=== PATIENT | female | born 1965 | race Caucasian/White ===

== ENCOUNTER 2017-08-19 08:21 | Day surgery (SDC) | payer OTHER ==
[2017-08-14 14:29] VITALS: BMI 30.2
--- NOTE | 2017-08-19 07:45 | P.GSHP ---
History of Present Illness H&P Date: 08/19/17 CHIEF COMPLAINT: GERD HISTORY OF PRESENT ILLNESS: The patient is a 51-year-old female who presents reports gastroesophageal reflux disease. Upper endoscopy was offered for further evaluation and management. PAST MEDICAL HISTORY: Please see list. PAST SURGICAL HISTORY: Please see list. MEDICATIONS: Please see list. ALLERGIES: Please see list. SOCIAL HISTORY: No illicit drug use FAMILY HISTORY: No reports of Crohn disease or ulcerative colitis. REVIEW OF ORGAN SYSTEMS: CONSTITUTIONAL: No reports of fevers or chills. GI: Denies any blood in stools or constipation. PHYSICAL EXAM: VITAL SIGNS: Stable GENERAL: Well-developed and pleasant in no acute distress. HEENT: No scleral icterus. Extraocular movements grossly intact. Moist buccal mucosa. NECK: Supple without lymphadenopathy. CHEST: Unlabored respirations. Equal bilateral excursions. CARDIOVASCULAR: Regular rate and rhythm. Distal 2+ pulses. ABDOMEN: Soft, nondistended. MUSCULOSKELETAL: No clubbing, cyanosis, or edema. ASSESSMENT: 1. Gastroesophageal reflux disease PLAN: 1. Recommend proceeding with an upper endoscopy Past Medical History Past Medical History: No Reported History, GERD/Reflux Additional Past Medical History / Comment(s): LYMPH EDEMA History of Any Multi-Drug Resistant Organisms: MRSA Date of last positivie culture/infection: 2007 MDRO Source:: MOUTH, SHOULDER, BACK-CYSTS Past Surgical History: Appendectomy, Breast Surgery, Cholecystectomy, Hysterectomy, Orthopedic Surgery Additional Past Surgical History / Comment(s): BILAT carpal tunnel. RT LUMPECTOMY-BENIGN. COLONOSCOPY. EGD Past Anesthesia/Blood Transfusion Reactions: Postoperative Nausea & Vomiting ( PONV) Smoking Status: Never smoker - Past Family History Mother Family Medical History: No Reported History Medications and Allergies Home Medications Medication Instructions Recorded Confirmed Type Diazepam [Valium] 10 mg PO TID 09/18/14 08/14/17 History ARIPiprazole [Abilify] 5 mg PO HS 08/14/17 08/14/17 History Cariprazine HCl [Vraylar] 1.5 mg PO HS 08/14/17 08/14/17 History Escitalopram [Lexapro] 10 mg PO DAILY 08/14/17 08/14/17 History Furosemide [Lasix] 40 mg PO BID 08/14/17 08/14/17 History Potassium Chloride [Klor-Con 20] 20 meq PO BID 08/14/17 08/14/17 History Zolpidem Tartrate [Ambien Cr] 12.5 mg PO HS 08/14/17 08/14/17 History lamoTRIgine [LaMICtal] 200 mg PO BID 08/14/17 08/14/17 History Allergies Allergy/AdvReac Type Severity Reaction Status Date / Time No Known Allergies Allergy Verified 08/14/17 14:19
[~2017-08-19 08:21] MED LIST: DEXAMETHASONE SOD PHOSPHATE 10 MG/ML 1 ML VIAL IV ONE; LACTATED RINGERS 1,000 ML IV SCH; ONDANSETRON 4 MG/2 ML VIAL IVP ONE; ONDANSETRON 4 MG/2 ML VIAL IVP PRN
[2017-08-19 08:57] VITALS: TEMP 98.9
[2017-08-19] MEDS ORDERED: LIDOCAINE 1% 20 ML VIAL (10MG/ML) FOR IV START INTRADERMA ONE (09:09)
[2017-08-19] MEDS ORDERED: PROPOFOL 10 MG/ML 20 ML VIAL IV ONE (11:13)
[2017-08-19] MEDS ORDERED: fentaNYL (PF) 50 MCG/ML 2 ML AMP ONE (11:13)
[2017-08-19] MEDS ORDERED: GLYCOPYRROLATE 0.2 MG/ML 2 ML VIAL ONE (11:13)
[2017-08-19 11:49] VITALS: BP 111/74; PULSE 88; RESP 16
== END 2017-08-19 12:12 | disposition home or self-care (01) ==
LOC: ORWHC2ENDO 08:21
PROVIDERS: ATTEND Surgery Plastic and Reconstructive Surgery
DX: K21.0 Gastro-esophageal reflux disease with esophagitis (principal); K29.50 Unspecified chronic gastritis without bleeding; F39 Unspecified mood [affective] disorder; Z86.14 Personal history of Methicillin resistant Staphylococcus aureus infection; Z79.899 Other long term (current) drug therapy; Z88.8 Allergy status to other drugs, medicaments and biological substances
CPT/HCPCS: 88305; 43239; J3010; J2704

== ENCOUNTER 2017-09-09 12:16 | Emergency (ER) | payer OTHER ==
[2017-09-09] MEDS ORDERED: SODIUM CHLORIDE 0.9% 1,000 ML IV ONE (12:46)
[2017-09-09] MEDS ORDERED: MAG HYDROX/AL HYDROX/SIMETH 30 ML, HYOSCYAMINE ELIXIR 10 ML, CIMETIDINE HCL 300 MG, LID... PO STA ×4 (12:46)
[2017-09-09] MEDS ORDERED: diphenhydrAMINE 50 MG/ML 1 ML VIAL IVP STA (12:46)
[2017-09-09] MEDS ORDERED: METOCLOPRAMIDE 5 MG/ML 2 ML VIAL IVP STA (12:46)
--- NOTE | 2017-09-09 12:53 | ED ---
Abdominal Pain HPI - General Chief Complaint: Abdominal Pain Stated Complaint: Reflux Time Seen by Provider: 09/09/17 12:34 Source: patient Mode of arrival: ambulatory Limitations: no limitations - History of Present Illness Initial Comments: Is a 51-year-old female to history of GERD and hiatal hernia who presents emergency department for epigastric abdominal pain. She states that the pain has been worsening for the last 5 days per she states that she's been having multiple episodes of vomiting and diarrhea. She noticed a little bit of blood in her vomit this morning. She is supposed to have a surgical repair of the hiatal hernia done by Dr. Faith however is going through preop clearance at this time. She states that she tried home medications however has not had any improvement in her symptoms. She called the office yesterday and was directed to the emergency department for a GI cocktail. The patient denies any fevers or chills. She does admit to some lightheadedness and flushing at times. No dysuria or hematuria. No vaginal bleeding. No other acute complaints. - Related Data Home Medications Medication Instructions Recorded Confirmed Diazepam [Valium] 10 mg PO BID 09/18/14 09/09/17 Cariprazine HCl [Vraylar] 1.5 mg PO HS 08/14/17 09/09/17 Escitalopram [Lexapro] 10 mg PO DAILY 08/14/17 09/09/17 Furosemide [Lasix] 40 mg PO BID 08/14/17 09/09/17 Potassium Chloride [Klor-Con 20] 20 meq PO BID 08/14/17 09/09/17 lamoTRIgine [LaMICtal] 200 mg PO BID 08/14/17 09/09/17 SUMAtriptan SUCCINATE [Imitrex] 50 mg PO Q12H PRN 09/09/17 09/09/17 Zolpidem [Ambien] 10 mg PO HS PRN 09/09/17 09/09/17 Previous Rx's Medication Instructions Recorded Omeprazole 40 mg PO DAILY #30 capsule. 08/19/17 Sucralfate [Carafate] 1 gm PO ACHS #414 ml 09/09/17 Allergies Allergy/AdvReac Type Severity Reaction Status Date / Time No Known Allergies Allergy Verified 09/09/17 12:41 Review of Systems ROS Statement: Those systems with pertinent positive or pertinent negative responses have been documented in the HPI. ROS Other: All systems not noted in ROS Statement are negative. Past Medical History Past Medical History: GERD/Reflux Additional Past Medical History / Comment(s): LYMPH EDEMA History of Any Multi-Drug Resistant Organisms: MRSA Date of last positivie culture/infection: 2007 MDRO Source:: MOUTH, SHOULDER, BACK-CYSTS Past Surgical History: Appendectomy, Breast Surgery, Cholecystectomy, Hysterectomy, Orthopedic Surgery Additional Past Surgical History / Comment(s): BILAT carpal tunnel. RT LUMPECTOMY-BENIGN. COLONOSCOPY. EGD Past Anesthesia/Blood Transfusion Reactions: Postoperative Nausea & Vomiting ( PONV) Past Psychological History: Anxiety, Bipolar, Depression Smoking Status: Former smoker Past Alcohol Use History: None Reported Past Drug Use History: None Reported - Past Family History Mother Family Medical History: No Reported History General Exam - General Exam Comments Initial Comments: Constitutional: Awake alert Appears comfortable Head: Normocephalic atraumatic Eyes: no conjunctival injection No scleral icterus EOMI Neck: No JVD Supple Heart: Regular rate rhythm normal S1-S2 no murmurs Lungs: Clear to auscultation bilaterally No wheezing No rales Abdomen: Soft nondistended tender to palpation in the epigastric region Extremities: Non edematous DP pulses intact Radial pulses intact Neuro: A&Ox3 No focal neurologic deficits Psych: Appropriate mood and affect Limitations: no limitations Course Vital Signs 09/09/17 09/09/17 12:29 13:36 Temperature 98.8 F Pulse Rate 101 H 98 Respiratory 20 16 Rate Blood Pressure 128/86 144/85 O2 Sat by Pulse 97 96 Oximetry - Reevaluation(s) Reevaluation #1: 09/09/17 14:00 EKG showing normal sinus rhythm with a rate of 72. No abnormal ST 7 changes or T-wave inversions. QTC is 4:30. Other intervals normal. No ectopy. Medical Decision Making - Medical Decision Making Is a 51-year-old female who presents emergency department for epigastric pain. She had blood work performed which was unremarkable. She had significant improvement in her symptoms with a GI cocktail, Reglan, and Benadryl. She was able tolerate water at bedside and stated that she felt much improved. She is on Prilosec at home. I'm going to add Carafate. Told her to pecan picker some Maalox as well. I told her to discontinue the Mcdonough's they do not seem to be working and of concern for hypercalcemia with her if she is taking too many. She is to call Dr. Faith for follow-up appointment. Return emergency department she has worsening or changing symptoms reductions were answered. - Lab Data Result diagrams: 09/09/17 13:05 09/09/17 13:05 Lab Results 09/09/17 09/09/17 09/09/17 Range/Units 13:00 13:00 13:05 WBC 11.8 H (3.8-10.6) k/uL RBC 5.16 (3.80-5.40) m/uL Hgb 15.8 (11.4-16.0) gm/dL Hct 43.9 (34.0-46.0) % MCV 85.1 (80.0-100.0) fL MCH 30.6 (25.0-35.0) pg MCHC 36.0 (31.0-37.0) g/dL RDW 13.0 (11.5-15.5) % Plt Count 427 (150-450) k/uL Neutrophils % 57 % Lymphocytes % 36 % Monocytes % 4 % Eosinophils % 1 % Basophils % 1 % Neutrophils # 6.7 (1.3-7.7) k/uL Lymphocytes # 4.3 (1.0-4.8) k/uL Monocytes # 0.4 (0-1.0) k/uL Eosinophils # 0.1 (0-0.7) k/uL Basophils # 0.1 (0-0.2) k/uL Sodium (137-145) mmol/L Potassium (3.5-5.1) mmol/L Chloride (98-107) mmol/L Carbon Dioxide (22-30) mmol/L Anion Gap mmol/L BUN (7-17) mg/dL Creatinine (0.52-1.04) mg/dL Est GFR (CKD-EPI)AfAm (>60 ml/min/1.73 sqM) Est GFR (CKD-EPI)NonAf (>60 ml/min/1.73 sqM) Glucose (74-99) mg/dL Calcium (8.4-10.2) mg/dL Magnesium (1.6-2.3) mg/dL Total Bilirubin (0.2-1.3) mg/dL AST (14-36) U/L ALT (9-52) U/L Alkaline Phosphatase (38-126) U/L Total Protein (6.3-8.2) g/dL Albumin (3.5-5.0) g/dL Lipase (23-300) U/L Urine Color Yellow Urine Appearance Cloudy H (Clear) Urine pH 5.5 (5.0-8.0) Ur Specific Arabi 1.018 (1.001-1.035) Urine Protein Trace H (Negative) Urine Glucose (UA) Negative (Negative) Urine Ketones Negative (Negative) Urine Blood Negative (Negative) Urine Nitrite Negative (Negative) Urine Bilirubin Negative (Negative) Urine Urobilinogen <2.0 (<2.0) mg/dL Ur Leukocyte Esterase Negative (Negative) Urine RBC 1 (0-5) /hpf Urine WBC 8 H (0-5) /hpf Ur Squamous Epith Cells 14 H (0-4) /hpf Amorphous Sediment Rare H (None) /hpf Urine Mucus Few H (None) /hpf Urine HCG, Qual Not Detected (Not Detectd) 09/09/17 Range/Units 13:05 WBC (3.8-10.6) k/uL RBC (3.80-5.40) m/uL Hgb (11.4-16.0) gm/dL Hct (34.0-46.0) % MCV (80.0-100.0) fL MCH (25.0-35.0) pg MCHC (31.0-37.0) g/dL RDW (11.5-15.5) % Plt Count (150-450) k/uL Neutrophils % % Lymphocytes % % Monocytes % % Eosinophils % % Basophils % % Neutrophils # (1.3-7.7) k/uL Lymphocytes # (1.0-4.8) k/uL Monocytes # (0-1.0) k/uL Eosinophils # (0-0.7) k/uL Basophils # (0-0.2) k/uL Sodium 140 (137-145) mmol/L Potassium 3.8 (3.5-5.1) mmol/L Chloride 98 (98-107) mmol/L Carbon Dioxide 28 (22-30) mmol/L Anion Gap 14 mmol/L BUN 10 (7-17) mg/dL Creatinine 0.66 (0.52-1.04) mg/dL Est GFR (CKD-EPI)AfAm >90 (>60 ml/min/1.73 sqM) Est GFR (CKD-EPI)NonAf >90 (>60 ml/min/1.73 sqM) Glucose 97 (74-99) mg/dL Calcium 10.3 H (8.4-10.2) mg/dL Magnesium 2.0 (1.6-2.3) mg/dL Total Bilirubin 0.7 (0.2-1.3) mg/dL AST 29 (14-36) U/L ALT 29 (9-52) U/L Alkaline Phosphatase 101 (38-126) U/L Total Protein 8.1 (6.3-8.2) g/dL Albumin 4.6 (3.5-5.0) g/dL Lipase 31 (23-300) U/L Urine Color Urine Appearance (Clear) Urine pH (5.0-8.0) Ur Specific Arabi (1.001-1.035) Urine Protein (Negative) Urine Glucose (UA) (Negative) Urine Ketones (Negative) Urine Blood (Negative) Urine Nitrite (Negative) Urine Bilirubin (Negative) Urine Urobilinogen (<2.0) mg/dL Ur Leukocyte Esterase (Negative) Urine RBC (0-5) /hpf Urine WBC (0-5) /hpf Ur Squamous Epith Cells (0-4) /hpf Amorphous Sediment (None) /hpf Urine Mucus (None) /hpf Urine HCG, Qual (Not Detectd) Disposition Clinical Impression: Epigastric abdominal pain, Hiatal hernia, Gastritis Disposition: HOME SELF-CARE Condition: Stable Instructions: Gastritis (ED) Additional Instructions: tariff supervisor some Maalox from the pharmacy and use as needed Prescriptions: Sucralfate [Carafate] 1 gm PO ACHS #414 ml Referrals: Nonstaff,Physician [REFERRING] - 1-2 days Mela Doll MD [STAFF PHYSICIAN] - 1-2 days
[2017-09-09 13:18] LABS: Basophils # (A) 0.1 k/uL (0-0.2); Basophils % (A) 1 %; Eosinophils # (A) 0.1 k/uL (0-0.7); Eosinophils % (A) 1 %; HCT 43.9 % (34.0-46.0); HGB 15.8 gm/dL (11.4-16.0); Lymphocytes # (A) 4.3 k/uL (1.0-4.8); Lymphocytes % (A) 36 %; MCH 30.6 pg (25.0-35.0); MCV 85.1 fL (80.0-100.0); Mean Platelet Volume 6.7; Monocytes # (A) 0.4 k/uL (0-1.0); Monocytes % (A) 4 %; Neutrophils # (A) 6.7 k/uL (1.3-7.7); Neutrophils % (A) 57 %; Platelet Count 427 k/uL (150-450); RBC 5.16 m/uL (3.80-5.40); WBC 11.8 k/uL (3.8-10.6)
[2017-09-09 13:27] LABS: Albumin 4.6 g/dL (3.5-5.0); Anion Gap 14 mmol/L; Calcium 10.3 mg/dL (8.4-10.2); Carbon Dioxide 28 mmol/L (22-30); Chloride 98 mmol/L (98-107); Glucose 97 mg/dL (74-99); Lipase 31 U/L (23-300); Sodium 140 mmol/L (137-145); Total Bilirubin 0.7 mg/dL (0.2-1.3); Total Protein 8.1 g/dL (6.3-8.2)
[2017-09-09 13:34] LABS: ALT 29 U/L (9-52); AST 29 U/L (14-36); Blood Urea Nitrogen 10 mg/dL (7-17); Potassium 3.8 mmol/L (3.5-5.1)
[2017-09-09 13:35] LABS: Alkaline Phosphatase 101 U/L (38-126)
[2017-09-09 13:37] VITALS: BP 144/85; RESP 16
[2017-09-09 13:42] LABS: Amorphous Sediment,Urine Rare /hpf; Appearance,Urine Cloudy (Clear); Bilirubin,Urine Negative (Negative); Blood,Urine Negative (Negative); Color,Urine Yellow; Glucose,Urine (UA) Negative (Negative); Ketones,Urine Negative (Negative); Leukocyte Esterase,Urine Negative (Negative); Mucus,Urine Few /hpf; Nitrite,Urine Negative (Negative); PH, Urine 5.5 (5.0-8.0); Protein,Urine Trace (Negative); RBC,Urine 1 /hpf (0-5); Specific Gravity,Urine 1.018 (1.001-1.035); Squamous Epithelial Cell,Urine 14 /hpf (0-4); Urobilinogen,Urine <2.0 mg/dL (<2.0); WBC,Urine 8 /hpf (0-5)
[2017-09-09 14:38] VITALS: PULSE 87; TEMP 98.2
== END 2017-09-09 14:37 | disposition home or self-care (01) ==
LOC: EC 12:16
DX: K29.70 Gastritis, unspecified, without bleeding (principal); K44.9 Diaphragmatic hernia without obstruction or gangrene; K21.9 Gastro-esophageal reflux disease without esophagitis; F31.9 Bipolar disorder, unspecified; F41.9 Anxiety disorder, unspecified; Z86.14 Personal history of Methicillin resistant Staphylococcus aureus infection; Z90.49 Acquired absence of other specified parts of digestive tract; Z79.899 Other long term (current) drug therapy; Z87.891 Personal history of nicotine dependence
CPT/HCPCS: 99284; 96374; 96375; 96361; 36415; 93005; 80053; 83690; 83735; 85025; 81001; 81025; J1200; J2765

== ENCOUNTER → 2017-10-21 | Outpatient (CLI) | payer OTHER ==
--- NOTE | 2017-10-21 10:43 | XR ---
EXAMINATION TYPE: XR chest 2V DATE OF EXAM: 10/21/2017 COMPARISON: None HISTORY: 51-year-old female with hiatal hernia and reflux, pain, vomiting TECHNIQUE: Frontal and lateral views FINDINGS: Heart normal size. Aorta and pulmonary vasculature are within normal limits. Mild diffuse interstitia l prominence of the chronic appearance. No consolidation or pleural effusion. Subtle nodularity right mid lung could reflect vascular shadow. IMPRESSION: 1. No acute cardiopulmonary process. 2. Subtle nodularity at the right midlung could represent a vascular shadow/summation artifact. Given the patient's smoking history, CT can exclude an underlying pulmonary nodule.
--- NOTE | 2017-10-21 11:24 | FL ---
EXAMINATION: Cervical and Thoracic Esophagram DATE OF EXAM: 10/21/2017 CLINICAL INDICATION: 51-year-old female who had a hernia, complaining of reflux and vomiting. Remote history of prior hernia repair which failed after 17 years. Fluoroscopy time: 2 minutes 14 seconds. Total images: 52 COMPARISON: None FINDINGS: The swallowing mechanism is normal and hypopharyngeal anatomy is preserved. There is mild anterior en dplate spondylosis mid to lower cervical spine causing mild impressions on the posterior cervical eso phageal wall. The thoracic esophagus is dilated and patulous with markedly blunted primary and secondary peristalti c waves. Mild tertiary peristalsis is noted especially in the distal esophagus. When the patient is p param, nearly the entire cup of contrast remains pooled in the esophagus. This passes into the stomach when the patient is brought upright. No suspicious filling defect is seen within the fossa. There is a moderate to large size hiatal herni a. Prominent overlap at the GE junction makes it difficult to clearly assess for subtle mucosal lesio ns. Contrast freely passes into the herniated portion of the stomach. Valsalva and positional maneuvers f kalpana to reproduce gastroesophageal reflux. This does not exclude this possibility IMPRESSION: 1. Dilated esophagus. Presbyesophagus. When the patient is prone, nearly the entire cup of contrast r emains pooled in the esophagus. This passes into the stomach when the patient is brought upright. 2. Moderate to large hiatal hernia. This results in prominent soft tissue overlap at the GE junction limiting assessment for subtle mucosal lesions. Correlate with findings on endoscopy. No definite nitesh picious filling defects are identified. 3. Ingested contrast freely refluxes into the herniated portion of the stomach.
== END | disposition home or self-care (01) ==
LOC: RADFLMAIN 09:24
PROVIDERS: ATTEND Surgery Plastic and Reconstructive Surgery
DX: K44.9 Diaphragmatic hernia without obstruction or gangrene (principal); R91.8 Other nonspecific abnormal finding of lung field
CPT/HCPCS: 71046; 74220

== ENCOUNTER → 2017-10-26 | Outpatient (CLI) | payer OTHER ==
--- NOTE | 2017-10-26 12:19 | CT ---
EXAMINATION TYPE: CT abdomen pelvis w con DATE OF EXAM: 10/26/2017 COMPARISON: NONE HISTORY: Upper Abdominal pain and GERD CT DLP: 931.5 mGycm CONTRAST: CT scan of the abdomen and pelvis is performed with Oral Contrast and with IV Contrast, patient injec yung with 100 mL of Isovue 300. FINDINGS: LUNG BASES-: No visible nodule. Patchy and strandy basilar densities may reflect proximal scar atelec tasis. LIVER/GB: Cholecystectomy clips noted. No space occupying hepatic lesion. Biliary tree is of judith l caliber. PANCREAS: No inflammation. No distinct mass. SPLEEN: No splenic enlargement. No lesion seen. ADRENALS: No nodule. No thickening. KIDNEYS/BLADDER: No hydronephrosis. No nephrolithiasis. No distinct renal mass. Distal left ureter al ureterocele. Urinary bladder grossly unremarkable. BOWEL: Appendectomy changes noted. Normal bowel caliber. No inflammation. Moderate fixed hiatal her ivana noted. GENITAL ORGANS: Hysterectomy changes identified. LYMPH NODES: No greater than 1cm abdominal or pelvic lymph nodes are appreciated. AORTA: No significant abnormality. OSSEOUS STRUCTURES: Small fat-containing umbilical hernia. No evidence for additional low ventral abd ominal hernia. OTHER: No significant additional abnormality is seen. IMPRESSION: 1. Moderate fixed hiatal hernia. 2. Small fat-containing umbilical hernia.
== END | disposition home or self-care (01) ==
LOC: RADCTMAIN 10:12
PROVIDERS: ATTEND Surgery Plastic and Reconstructive Surgery
DX: K44.9 Diaphragmatic hernia without obstruction or gangrene (principal); K42.9 Umbilical hernia without obstruction or gangrene
CPT/HCPCS: 74177; Q9967

== ENCOUNTER 2017-12-04 09:11 | Day surgery (SDC) | payer OTHER ==
[2017-12-02 15:40] VITALS: BMI 30.9
[~2017-12-04 09:11] MED LIST changes: +ALPRAZolam 0.25 MG TAB PO PRN; +ALPRAZolam 0.5 MG TAB PO PRN; +ASPIRIN 325 MG TAB PO STA; +ATORVASTATIN 80 MG TAB PO STA; -DEXAMETHASONE SOD PHOSPHATE 10 MG/ML 1 ML VIAL IV ONE; -LACTATED RINGERS 1,000 ML IV SCH; +LIDOCAINE 1% INJ 10MG/ML (20 ML MDV) ONE; +NITROGLYCERIN SL TABS 0.4 MG TAB SUBLINGUAL PRN; -ONDANSETRON 4 MG/2 ML VIAL IVP ONE; -ONDANSETRON 4 MG/2 ML VIAL IVP PRN; +SODIUM CHLORIDE 0.9% 1,000 ML in EMPTY BAG 1 BAG IV ONE
[2017-12-04 09:54] VITALS: RESP 16; TEMP 98.3
[2017-12-04] MEDS ORDERED: SODIUM CHLORIDE 0.9% 1,000 ML IV ONE (10:02)
[2017-12-04 10:12] LABS: Basophils # (A) 0.1 k/uL (0-0.2); Basophils % (A) 1 %; Eosinophils # (A) 0.1 k/uL (0-0.7); Eosinophils % (A) 1 %; HCT 41.8 % (34.0-46.0); HGB 14.3 gm/dL (11.4-16.0); Lymphocytes # (A) 2.9 k/uL (1.0-4.8); Lymphocytes % (A) 29 %; MCH 30.9 pg (25.0-35.0); MCHC 34.2 g/dL (31.0-37.0); MCV 90.3 fL (80.0-100.0); Mean Platelet Volume 6.6; Monocytes # (A) 0.6 k/uL (0-1.0); Monocytes % (A) 6 %; Neutrophils # (A) 6.2 k/uL (1.3-7.7); Neutrophils % (A) 62 %; Platelet Count 369 k/uL (150-450); RBC 4.62 m/uL (3.80-5.40); RDW 14.2 % (11.5-15.5)
[2017-12-04 10:23] LABS: Anion Gap 12 mmol/L; Blood Urea Nitrogen 10 mg/dL (7-17); Calcium 9.1 mg/dL (8.4-10.2); Carbon Dioxide 28 mmol/L (22-30); Chloride 101 mmol/L (98-107); Glucose 111 mg/dL (74-99); Potassium 3.4 mmol/L (3.5-5.1); Sodium 141 mmol/L (137-145)
[2017-12-04] MEDS ORDERED: VERAPAMIL 2.5 MG/ML 2 ML AMP ONE (10:34)
[2017-12-04] MEDS ORDERED: MIDAZOLAM 2 MG/2 ML VIAL ONE ×2 (10:45→10:59)
[2017-12-04] MEDS ORDERED: MIDAZOLAM 2 MG/2 ML VIAL IVP ONE ×2 (10:48→10:59)
[2017-12-04] MEDS ORDERED: POTASSIUM CHLORIDE ER 20 MEQ TAB.ER PO STA (10:56)
[2017-12-04] MEDS: VERAPAMIL SYRINGE (5 MG/10 ML) INTRAARTER ONE ×2 (10:57→11:06)
[2017-12-04] MEDS ORDERED: LIDOCAINE 2% SYG (PF) 100 MG/5 ML MISCELLANE ONE (10:57)
[2017-12-04] MEDS ORDERED: HEPARIN SODIUM 1,000 UN/ML (10ML VL) ONE (10:57)
[2017-12-04] MEDS ORDERED: HEPARIN SODIUM 1,000 UN/ML (10ML VL) IV ONE (10:58)
[2017-12-04] MEDS ORDERED: IOPAMIDOL-370 125ML BTL INJ ONE (11:05)
[2017-12-04] MEDS ORDERED: RX INFO: IV CONTRAST WAS GIVEN 1 EACH MISC MISCELLANE PRN (11:17)
[2017-12-04] MEDS ORDERED: SODIUM CHLORIDE 0.9% 1,000 ML IV SCH (11:30)
--- NOTE | 2017-12-04 11:43 | CC ---
CARDIAC CATHETERIZATION REPORT DATE OF SERVICE: 12/04/2017 PERFORMING PHYSICIAN: Saul Awan MD, [employer]. PROCEDURE PERFORMED: 1. Selective right and left coronary angiogram. 2. Left heart catheterization. INDICATION: This is a pleasant 52-year-old female patient who underwent a stress test as a part of the cardiac assessment before hernia surgery and that came in to be abnormal. Because of that, heart catheterization was advised. APPROACH: Right radial artery. COMPLICATION: None. LEVEL OF SEDATION: Moderate, sedation length of 10 minutes. PROCEDURE DESCRIPTION: After obtaining an informed consent, the patient was brought to the cardiac vp lab. The right radial artery was cannulated using micropuncture technique, the micropuncture wire passed easily, then I placed a 6-Kazakh sheath in the right radial artery. I gave the patient 2 mg of verapamil IA and 6,000 units of heparin IV. I did selective right and left coronary angiogram using JR4 and JL3.5 and left heart catheterization using pigtail catheter. The procedure was completed without any complication. SELECTIVE CORONARY ANGIOGRAM: 1. The RCA is a large caliber vessel. It is a dominant vessel. The RCA is angiographically normal. 2. The left main is angiographically normal. It bifurcates into left circumflex and left anterior descending artery. 3. The left circumflex is a large caliber vessel and it is a nondominant vessel with the circumflex is angiographically normal as well. 4. The LAD: The proximal LAD is angiographically normal. It gives rise into a diagonal branch which seems to be angiographically normal. The LAD mid and distally are angiographically normal. HEMODYNAMICS: The left ventricular end-diastolic pressure was 12 mmHg and no gradient was identified across the aortic valve. CONCLUSION: 1. Normal coronary angiogram. 2. Normal left ventricular end-diastolic pressure. POSTPROCEDURE MANAGEMENT: 1. Maximize medical treatment. 2. The patient can proceed with her surgery as well. MMODL / IJN: [id number] /
[2017-12-04 15:59] VITALS: PULSE 78
[2017-12-04 16:51] VITALS: BP 122/87
== END 2017-12-04 16:51 | disposition home or self-care (01) ==
LOC: CATHCVL 09:11
PROVIDERS: ATTEND Internal Medicine Interventional Cardiology
DX: R94.39 Abnormal result of other cardiovascular function study (principal); I20.0 Unstable angina; Z79.1 Long term (current) use of non-steroidal anti-inflammatories (NSAID); Z79.899 Other long term (current) drug therapy; Z72.0 Tobacco use
CPT/HCPCS: 93458; 80048; 85025; C1894; J2250; J2001; J1644; Q9967

== ENCOUNTER → 2018-02-01 | Outpatient (CLI) | payer OTHER ==
[2018-02-01 11:49] LABS: HCT 43.2 % (34.0-46.0); HGB 14.6 gm/dL (11.4-16.0); MCH 30.1 pg (25.0-35.0); MCHC 33.7 g/dL (31.0-37.0); MCV 89.1 fL (80.0-100.0); Mean Platelet Volume 6.5; Platelet Count 422 k/uL (150-450); RBC 4.85 m/uL (3.80-5.40); RDW 13.7 % (11.5-15.5); WBC 12.5 k/uL (3.8-10.6)
[2018-02-01 11:59] LABS: Potassium 3.1 mmol/L (3.5-5.1)
== END | disposition home or self-care (01) ==
LOC: LABPAT 10:43
PROVIDERS: ATTEND Surgery Plastic and Reconstructive Surgery
DX: Z01.812 Encounter for preprocedural laboratory examination (principal); K44.9 Diaphragmatic hernia without obstruction or gangrene
CPT/HCPCS: 36415; 80051; 85027

== ENCOUNTER 2018-02-05 07:30 | Inpatient (IN) | payer OTHER ==
[2018-01-28 15:19] VITALS: BMI 28.4
[~2018-02-05 07:30] MED LIST changes: -ALPRAZolam 0.25 MG TAB PO PRN; -ALPRAZolam 0.5 MG TAB PO PRN; -ASPIRIN 325 MG TAB PO STA; -ATORVASTATIN 80 MG TAB PO STA; +DEXAMETHASONE SOD PHOSPHATE 10 MG/ML 1 ML VIAL IV ONE; +HEPARIN SODIUM,PORCINE 5,000 UNIT/ML 1 ML VIAL SQ ONE; -LIDOCAINE 1% INJ 10MG/ML (20 ML MDV) ONE; +MIDAZOLAM 2 MG/2 ML VIAL IV PRN; -NITROGLYCERIN SL TABS 0.4 MG TAB SUBLINGUAL PRN; +SCOPOLAMINE 1.5MG/72HR PATCH TRANSDERM ONE; -SODIUM CHLORIDE 0.9% 1,000 ML in EMPTY BAG 1 BAG IV ONE; +ceFAZolin IN SWFI 2 GM/20 ML SYRINGE IVP ONE; +fentaNYL (PF) 50 MCG/ML 2 ML AMP IV PRN
--- NOTE | 2018-02-05 07:41 | P.GSHP ---
History of Present Illness H&P Date: 02/05/18 CHIEF COMPLAINT: Paraesophageal hiatal hernia with gastroesophageal reflux disease. HISTORY OF PRESENT ILLNESS: The patient is a 52-year-old female who presents with recurrent paraesophageal hiatal hernia following Tank fundoplasty. She has completed an esophageal manometry including upper endoscopy workup. Now she presents for surgical intervention. PAST MEDICAL HISTORY: Please see list. PAST SURGICAL HISTORY: Please see list. MEDICATIONS: Please see list. ALLERGIES: Please see list. SOCIAL HISTORY: No illicit drug use FAMILY HISTORY: No reports of Crohn disease or ulcerative colitis. REVIEW OF ORGAN SYSTEMS: CONSTITUTIONAL: No reports of fevers or chills. GI: Denies any blood in stools or constipation. PHYSICAL EXAM: VITAL SIGNS: Stable GENERAL: Well-developed pleasant and in no acute distress. HEENT: No scleral icterus. Extraocular movements grossly intact. Moist buccal mucosa. NECK: Supple without lymphadenopathy. CHEST: Unlabored respirations. Equal bilateral excursions. CARDIOVASCULAR: Regular rate and rhythm. Distal 2+ pulses. ABDOMEN: Soft, nondistended. No peritoneal signs. MUSCULOSKELETAL: No clubbing, cyanosis, or edema. SKIN: Well-perfused. Good skin turgor. MANOMETRY: Shows no evidence of achalasia or scleroderma. ASSESSMENT: 1. Recurrent diaphragmatic paraesophageal hiatal hernia with severe gastroesophageal reflux disease. PLAN: 1. Recommend proceeding with a robotic takedown of Tank with paraesophageal hiatal hernia with possible mesh. 2. Benefits and risks of surgical intervention was discussed including possibility of open technique. 3. Inpatient hospitalization recommended of 2 nights 4. DVT prophylaxis. 5. Antibiotic prophylaxis. 6. She has also completed a very low caloric high-protein diet to address underlying hepatomegaly. Past Medical History Past Medical History: GERD/Reflux, Neurologic Disorder Additional Past Medical History / Comment(s): LYMPH EDEMA, hiatal hernia, migraines History of Any Multi-Drug Resistant Organisms: MRSA Date of last positivie culture/infection: 2007 MDRO Source:: MOUTH, SHOULDER, BACK-CYSTS Past Surgical History: Appendectomy, Breast Surgery, Cholecystectomy, Heart Catheterization, Hysterectomy, Orthopedic Surgery Additional Past Surgical History / Comment(s): BILAT carpal tunnel. RT LUMPECTOMY-BENIGN. COLONOSCOPY. EGD. HEART CATH-12/04/17-NEG. Past Anesthesia/Blood Transfusion Reactions: Postoperative Nausea & Vomiting ( PONV) Smoking Status: Former smoker - Past Family History Mother Family Medical History: No Reported History Medications and Allergies Home Medications Medication Instructions Recorded Confirmed Type Diazepam [Valium] 10 mg PO TID 09/18/14 01/28/18 History Cariprazine HCl [Vraylar] 1.5 mg PO HS 08/14/17 01/28/18 History Escitalopram [Lexapro] 10 mg PO DAILY 08/14/17 01/28/18 History Furosemide [Lasix] 40 mg PO BID 08/14/17 01/28/18 History Potassium Chloride [Klor-Con 20] 20 meq PO BID 08/14/17 01/28/18 History lamoTRIgine [LaMICtal] 200 mg PO BID 08/14/17 01/28/18 History Omeprazole 40 mg PO DAILY #30 capsule. 08/19/17 01/28/18 Rx SUMAtriptan SUCCINATE [Imitrex] 50 mg PO Q12H PRN 09/09/17 01/28/18 History Melatonin 3 mg PO HS 12/02/17 01/28/18 History traZODone HCL 150 mg PO HS 12/02/17 01/28/18 History Allergies Allergy/AdvReac Type Severity Reaction Status Date / Time quetiapine [From Seroquel] Allergy edema Verified 01/28/18 15:15
[2018-02-05 13:04] VITALS: RESP 16
[2018-02-05] MEDS: LACTATED RINGERS 1,000 ML IV SCH (13:20)
[2018-02-05] MEDS: ONDANSETRON 4 MG/2 ML VIAL IVP ONE ×2 (13:21→18:52)
[2018-02-05] MEDS ORDERED: fentaNYL (PF) 50 MCG/ML 2 ML AMP ONE (14:41)
[2018-02-05] MEDS ORDERED: GLYCOPYRROLATE 0.2 MG/ML 2 ML VIAL ONE (14:41)
[2018-02-05] MEDS ORDERED: MIDAZOLAM 2 MG/2 ML VIAL ONE (14:41)
[2018-02-05] MEDS ORDERED: PROPOFOL 10 MG/ML 20 ML VIAL IV ONE (14:41)
[2018-02-05] MEDS ORDERED: HYDROmorphone (PF) 1 MG/ML ONE (14:41)
[2018-02-05] MEDS ORDERED: NEOSTIGMINE 1 MG/ML 10 ML VIAL ONE (14:41)
[2018-02-05] MEDS ORDERED: ROCURONIUM BROMIDE 10 MG/ML 10 ML VIAL IV ONE (14:41)
[2018-02-05] MEDS ORDERED: LIDOCAINE 1% INJ 10MG/ML (20 ML MDV) ONE (14:41)
[2018-02-05] MEDS ORDERED: SUCCINYLCHOLINE CHLORIDE 100 MG/5 ML SYR IV ONE (14:41)
[2018-02-05] MEDS ORDERED: SODIUM CHLORIDE 0.9% 100 ML with ceFAZolin 2,000 MG IV ONE ×2 (15:00)
[2018-02-05] MEDS ORDERED: BUPIVACAIN-EPI 0.5%-1:200,000 30 ML VIAL SQ ONE (15:13)
[2018-02-05] MEDS ORDERED: LACTATED RINGERS 1,000 ML IV ONE ×2 (15:21→17:12)
[2018-02-05] MEDS ORDERED: diphenhydrAMINE 50 MG/ML 1 ML VIAL IVP ONE ×2 (19:06)
[2018-02-05] MEDS ORDERED: ACETAMINOPHEN IV (For NPO) 1,000 MG in EMPTY BAG 1 BAG IVPB ONE (19:17)
[2018-02-05] MEDS ORDERED: NALOXONE 0.4 MG/ML 1 ML VIAL IV PRN (19:17)
[2018-02-05] MEDS ORDERED: diphenhydrAMINE 50 MG/ML 1 ML VIAL IVP PRN (19:17)
[2018-02-05] MEDS ORDERED: HYDROcodone/APAP 15 ML SOLUTION PO PRN (19:17)
--- NOTE | 2018-02-05 19:17 | P.OP ---
Date of Procedure: 02/05/18 Description of Procedure: SURGEON: JAS COX MD PREOPERATIVE DIAGNOSES: 1. Gastroesophageal reflux disease. 2. Paraesophageal hiatal hernia, midline, recurrent 3. History of previous Tank fundoplasty 4. Epigastric abdominal pain 5. Erosive esophagitis 6. Dysphagia 7. Hypertensive upper esophageal sphincter 8. Ineffective esophageal motility 9. Anxiety disorder 10. Bipolar disorder 11. Migraine headaches 12. Hypertensive heart disease POSTOPERATIVE DIAGNOSES: 1. Gastroesophageal reflux disease. 2. Paraesophageal hiatal hernia, midline, recurrent, incarcerated 6 x 8 cm 3. History of previous Tank fundoplasty 4. Epigastric abdominal pain 5. Erosive esophagitis 6. Dysphagia 7. Hypertensive upper esophageal sphincter 8. Ineffective esophageal motility 9. Anxiety disorder 10. Bipolar disorder 11. Migraine headaches 12. Hypertensive heart disease OPERATION: 1. Robotic-assisted da Shweta Xi laparoscopic takedown of Tank fundoplasty 2. Robotic-assisted da Shweta Xi laparoscopic extensive lysis of adhesions over 2 hours for perigastric adhesions 3. Robotic-assisted da Shweta Xi laparoscopic reduction and repair of recurrent incarcerated paraesophageal hiatal hernia, 6 x 8 cm, with Loco Biopatch A 8 x 8 cm. 4. Intraoperative esophagogastroduodenoscopy 5. Placement of 56-German bougie Implants: Loco Biopatch A 8 x 8 cm Anesthesia: GETA, local Estimated Blood Loss (ml): 50 Pathology: none sent Condition: stable Disposition: floor COMPLICATIONS: None. Operative Findings: 1. Recurrent incarcerated paraesophageal hiatal hernia, 6 x 8 cm 2. Severe peritoneal adhesions perigastric with incarcerated hiatal hernia with previous Tank fundoplasty requiring over 2 hours 3. Squamocolumnar junction at 32 cm without injury to esophagus or stomach. 4. Large intrathoracic hernia sac causing incarceration of stomach 5. Division and take down of fundoplasty using vessel sealer and stapler 6. More than 30% of stomach incarcerated into chest reduced into abdominal cavity 7. EGD demonstrates no esophageal injury or full-thickness gastrotomy INDICATIONS: The patient is a 52-year-old female who presents with gastroesophageal reflux and a symptomatic diaphragmatic hiatal hernia. Preoperative workup including upper endoscopy demonstrated recurrent hiatal hernia and slipped Tank fundoplasty. She completed an esophageal manometry. Given the severity of his symptoms, particularly of his symptomatic diaphragmatic hiatal hernia, she had elected for surgical intervention. Benefits and risks including bleeding, infection, recurrence, dysphagia, injury to the lung, need for further surgery was described at length. Informed consent was obtained. DESCRIPTION: The patient was brought into the operating room and placed in supine position. Preoperatively he had received heparin subcutaneously for DVT prophylaxis. After general induction, the abdomen was prepped and draped in standard sterile fashion. Snow catheter was placed. Ioban draping was placed along the abdomen. A timeout protocol was confirmed with the surgical team, for which the patient's name, procedure to be performed including DVT prophylaxis with bilateral SCDs, and preoperative antibiotics were also confirmed. Robotic da Shweta Xi system was prepped and primed. At 12 cm from the xiphoid to just below the umbilicus, proposed port sites were marked with indelible marker along the left axillary line, left mid-clavicular line with each ports were marked 10 cm from each other. A 5 mm 0 degrees laparoscopic trocar entry was performed along the left upper quadrant. The abdomen was insufflated to 15 mmHg pressure he tolerated well. Diagnostic laparoscopy demonstrated no injury to bowel, viscera, or mesentery. No injury had occurred to the small bowel or viscera. Along the hiatus, moderate perigastric adhesions were found from the previous fundoplasty. Next, one 8 mm robotic port was placed along the right upper abdomen. An 8-mm port was were placed along the left lateral abdominal wall. The camera 8-mm port was maintained along the epigastrium. A 12 mm port was placed along the left upper abdominal wall after exchanging the 5 mm port. Please note that the ports were placed at least 20 cm away from the target anatomy. Care was taken to check that each robotic arm were safely away from collision with the bed or the patient. At the epigastrium, a medium sized Rhett liver retractor was placed under direct visualization with the Iron Licensed Clinician placed under the right shoulder of the patient. The additional third robotic arm was used. The patient was repositioned in reverse Trendelenburg position at 14-degrees after lowering the bed. The robot was docked above the left side of the patient. Using a grasper for arm 3, a grasper for arm 1, including vessel sealer for arm 4, the robotic system was docked and primed as described. Instruments were interchanged by the assistant surveyor. I had sat at the console. The phrenoesophageal ligament had moderate scarring where the distal esophagus was mobilized circumferentially. Care was taken to avoid any injury to the The hiatal hernia sac was incarcerated into the mediastinum and divided to allow complete mobilization and freeing of the distal esophagus into the abdominal cavity. Care was taken to avoid any gastrotomy to the incarcerated upper pole of the stomach including takedown of the Tank fundoplasty. Extensive lysis of adhesions went more than 2 hours for extended dissection of the adherent stomach including to the liver bed including incarcerated stomach of the mediastinum to the hernia sac. The measured defect was consistent with 8 cm axial length and 6 cm in width. To prevent any injury to the stomach or esophagus, intraoperative EGD was used to monitor the short esophageal length of 32 cm including slipped Tank. Once the hiatus and crura was dissected, 2-0 VLOC suture was placed as a running suture to re-approximate the diaphragmatic hiatus posteriorly including anteriorly with imbricating stitch. To buttress the repair, a Loco Biopatch A was prepared along the back table and cut to reinforce the repair as an underlay. The mesh was placed along the crural repair posteriorly then cut in half and tagged using horizontal mattress sutures using 2-0 VLOC. I went to the head of the bed to perform intraoperative esophagogastroduodenoscopy. An Olympus gastroscope was passed through posterior oropharynx, where the GE junction was found just proximal to the diaphragmatic hiatus. The esophagus was short with the squamocolumnar junction at 32 cm from the incisors. Complete takedown of the Tank was confirmed as a tortuous winding stomach was unraveled. The stomach was entered. Chronic gastritis was found. LA grade A erosive esophagitis was identified. Retroflexion of the scope was limited due to incompetent pylorus. The stomach had been desufflated. No evidence of leaks were found or mucosal defects of the esophagus or stomach. This concluded the endoscopic portion of the case. The robot was undocked from the patient. I re-scrubbed into the case. All instruments and pneumoperitoneum were evacuated from the abdominal cavity. Incisions were reapproximated using 4-0 Monocryl in an interrupted subcuticular fashion. All incisions were cleaned using dilute hydrogen peroxide. The 12-mm port site fascial defect was less than 8 mm in size. Liquid glue was applied to the skin. Local anesthetic was infiltrated in all wounds for postop analgesia. Multiple intra-abdominal films were obtained. At the end of the procedure, needle, sponge, and instrument count was verified correct by the orthophotography technician. The patient had tolerated the procedure well and was taken to the postanesthesia unit in stable condition. Intraoperative films were reviewed with the patient's family who were pleased with the level of care. Console time 151 minutes
--- NOTE | 2018-02-05 20:23 | P.PN ---
Progress Note - Text Progress Note Date: 02/05/18 Discussed with nursing and patient is doing very well. She had mild nausea. Scopolamine patch is not available nationwide. Will put on scheduled Decadron to address underlying edema. Anticipated discharge in 48 hours.
[2018-02-05] MEDS: 0.9% NACL WITH KCL 20 MEQ/L 1,000 ML IV SCH (21:06)
[2018-02-05] MEDS: HYDROmorphone 1 MG/ML 1 ML SYRINGE IVP PRN (22:34)
[2018-02-05] MEDS: HYOSCYAMINE ORAL DROPS 1.875 MG/15 ML BOTTLE PO SCH (23:36)
[2018-02-05] MEDS: AMPICILLIN-SULBACTAM 3 GM in SODIUM CHLORIDE 0.9% 100 ML IVPB SCH (23:36)
[2018-02-05] MEDS: SIMETHICONE 40 MG/0.6 ML DROPS 2,000 MG/30 ML BOTTLE PO SCH (23:36)
[2018-02-05] MEDS: DEXAMETHASONE SOD PHOSPHATE 10 MG/ML 1 ML VIAL IV SCH (23:36)
[2018-02-06] MEDS ORDERED: DEXAMETHASONE SOD PHOSPHATE 4 MG/ML 1 ML VIAL IV SCH
[2018-02-06] MEDS: 0.9% NACL WITH KCL 20 MEQ/L 1,000 ML IV SCH (03:18)
[2018-02-06] MEDS: HYDROmorphone 1 MG/ML 1 ML SYRINGE IVP PRN ×2 (03:19→07:44)
[2018-02-06] MEDS: DEXAMETHASONE SOD PHOSPHATE 10 MG/ML 1 ML VIAL IV SCH ×2 (05:56→12:37)
[2018-02-06] MEDS: AMPICILLIN-SULBACTAM 3 GM in SODIUM CHLORIDE 0.9% 100 ML IVPB SCH (05:56)
[2018-02-06] MEDS: HYOSCYAMINE ORAL DROPS 1.875 MG/15 ML BOTTLE PO SCH ×2 (05:57→12:29)
[2018-02-06] MEDS: SIMETHICONE 40 MG/0.6 ML DROPS 2,000 MG/30 ML BOTTLE PO SCH ×2 (05:57→12:29)
[2018-02-06 06:36] LABS: Basophils % (A) 0 %; Eosinophils % (A) 0 %; HCT 39.8 % (34.0-46.0); HGB 13.1 gm/dL (11.4-16.0); Lymphocytes # (A) 1.3 k/uL (1.0-4.8); Lymphocytes % (A) 13 %; MCH 30.1 pg (25.0-35.0); MCHC 32.9 g/dL (31.0-37.0); MCV 91.7 fL (80.0-100.0); Mean Platelet Volume 6.5; Monocytes # (A) 0.2 k/uL (0-1.0); Monocytes % (A) 2 %; Neutrophils # (A) 8.4 k/uL (1.3-7.7); Neutrophils % (A) 85 %; Platelet Count 306 k/uL (150-450); RBC 4.34 m/uL (3.80-5.40); WBC 9.9 k/uL (3.8-10.6)
[2018-02-06 06:44] LABS: Anion Gap 6 mmol/L; Blood Urea Nitrogen 9 mg/dL (7-17); Calcium 8.2 mg/dL (8.4-10.2); Carbon Dioxide 29 mmol/L (22-30); Chloride 106 mmol/L (98-107); Magnesium 2.1 mg/dL (1.6-2.3); Phosphorus 3.6 mg/dL (2.5-4.5); Potassium 4.1 mmol/L (3.5-5.1); Sodium 141 mmol/L (137-145)
[2018-02-06] MEDS ORDERED: 0.9% NACL WITH KCL 20 MEQ/L 1,000 ML IV SCH (08:00)
[2018-02-06] MEDS ORDERED: ENOXAPARIN 40 MG/0.4 ML SYRINGE SQ SCH (09:00)
[2018-02-06] MEDS ORDERED: PANTOPRAZOLE 40 MG/10 ML VIAL IV SCH (09:00)
[2018-02-06] MEDS: LACTATED RINGERS 1,000 ML IV SCH (10:05)
[2018-02-06 11:30] VITALS: BP 111/72; PULSE 54; TEMP 97.5
--- NOTE | 2018-02-06 11:51 | P.DS ---
Providers Date of admission: 02/05/18 12:14 Expected date of discharge: 02/06/18 Attending physician: Mela Doll Primary care physician: Daniel Orta - Discharge Diagnosis(es) (1) Paraesophageal hernia with obstruction but no gangrene Current Visit: Yes Status: Acute (2) History of Tank fundoplication Current Visit: Yes Status: Acute (3) Depressive disorder Current Visit: Yes Status: Acute (4) Bipolar disease, chronic Current Visit: Yes Status: Acute (5) Anxiety disorder Current Visit: Yes Status: Acute (6) Gastroesophageal reflux disease Current Visit: Yes Status: Acute (7) Hx of migraines Current Visit: Yes Status: Acute (8) Hypertensive heart disease Current Visit: Yes Status: Acute Hospital Course: POSTOPERATIVE DIAGNOSES: 1. Gastroesophageal reflux disease. 2. Paraesophageal hiatal hernia, midline, recurrent, incarcerated 6 x 8 cm 3. History of previous Tank fundoplasty 4. Epigastric abdominal pain 5. Erosive esophagitis 6. Dysphagia 7. Hypertensive upper esophageal sphincter 8. Ineffective esophageal motility 9. Anxiety disorder 10. Bipolar disorder 11. Migraine headaches 12. Hypertensive heart disease The patient is a 52-year-old female who presents with gastroesophageal reflux and a symptomatic diaphragmatic hiatal hernia. Preoperative workup including upper endoscopy demonstrated recurrent hiatal hernia and slipped Tank fundoplasty. She completed an esophageal manometry. Given the severity of his symptoms, particularly of his symptomatic diaphragmatic hiatal hernia, she had elected for surgical intervention. Benefits and risks including bleeding, infection, recurrence, dysphagia, injury to the lung, need for further surgery was described at length. Informed consent was obtained. Post-procedure, she was educated on deep breathing including coughs. She was also educated to avoid medications larger than the size of a tic tac. Dietary instructions including liquid diet was reviewed. 1 intensive straws and carbonated beverages reviewed. Follow-up in the office in 5 days was stressed. Medical reconciliation form was confirmed. No lifting over 4 pounds instructions also addressed. Esophagram negative for leaks. Avoiding gulps with drinks were also addressed. Vital Signs Temp 97.5 F L 02/06/18 11:16 Pulse 54 L 02/06/18 11:16 Resp 16 02/06/18 11:16 BP 111/72 02/06/18 11:16 Pulse Ox 99 02/06/18 11:16 Intake & Output 02/05/18 02/06/18 02/06/18 18:59 06:59 18:59 Intake Total 2400 650 400 Output Total 225 Balance 2175 650 400 Intake: IV 2400 650 Oral 400 Output: Urine 175 Estimated Blood Loss 50 Other: # Voids 425 GENERAL: Well developed and in no acute distress. Pleasant. HEENT: No sclera icterus. Extraocular movements grossly intact. Moist buccal mucosa. Head is atraumatic, normocephalic. Hears conversational speech. No nasal drainage. NECK: Supple without lymphadenopathy. CHEST: Non-labored respirations and equal bilateral excursions. CARDIOVASCULAR: Regular rate and rhythm. Palpable 2+ radial pulses. ABDOMEN: Soft, nontender. Nondistended. Incisions well approximated. No signs of infection. MUSCULOSKELETAL: No clubbing, cyanosis or edema. NEUROLOGIC: No focal or lateralizing signs. Cranial nerves II-12 grossly intact PSYCH: Appropriate affect. Alert and oriented to person, place and time. SKIN: Good skin turgor. Well perfused. Pertinent Studies: Esophagram negative for leaks Procedures: OPERATION: 1. Robotic-assisted da Shweta Xi laparoscopic takedown of Tank fundoplasty 2. Robotic-assisted da Shweta Xi laparoscopic extensive lysis of adhesions over 2 hours for perigastric adhesions 3. Robotic-assisted da Shweta Xi laparoscopic reduction and repair of recurrent incarcerated paraesophageal hiatal hernia, 6 x 8 cm, with [place] Biopatch A 8 x 8 cm. 4. Intraoperative esophagogastroduodenoscopy 5. Placement of 56-Spanish bougie Implants: [place] Biopatch A 8 x 8 cm Anesthesia: GETA, local Estimated Blood Loss (ml): 50 Pathology: none sent Condition: stable Disposition: floor COMPLICATIONS: None. Operative Findings: 1. Recurrent incarcerated paraesophageal hiatal hernia, 6 x 8 cm 2. Severe peritoneal adhesions perigastric with incarcerated hiatal hernia with previous Tank fundoplasty requiring over 2 hours 3. Squamocolumnar junction at 32 cm without injury to esophagus or stomach. 4. Large intrathoracic hernia sac causing incarceration of stomach 5. Division and take down of fundoplasty using vessel sealer and stapler 6. More than 30% of stomach incarcerated into chest reduced into abdominal cavity 7. EGD demonstrates no esophageal injury or full-thickness gastrotomy Patient Condition at Discharge: Stable Plan - Discharge Summary Discharge Rx Participant: Yes New Discharge Prescriptions: New Hyoscyamine Elixir [Levsin 0.125MG/ML Drops] 0.125 mg PO Q6HR PRN #10 ml PRN Reason: Esophageal Spasm Simethicone 40 mg/0.6 ml Drops [Mylicon Drops] 40 mg PO Q6HR PRN #30 ml PRN Reason: Abdominal Distention Acetaminophen Oral Susp (Peds) [Tylenol Oral Susp For Peds (Grape)] 500 mg PO Q6H #480 bottle Bisacodyl [Dulcolax] 5 mg PO DAILY PRN #10 tablet.dr PRN Reason: Constipation Ondansetron Odt [Zofran ODT] 4 mg PO Q8HR PRN #10 tab PRN Reason: Nausea Continue Diazepam [Valium] 10 mg PO TID lamoTRIgine [LaMICtal] 200 mg PO BID Potassium Chloride [Klor-Con 20] 20 meq PO BID Furosemide [Lasix] 40 mg PO BID Escitalopram [Lexapro] 10 mg PO DAILY Cariprazine HCl [Vraylar] 1.5 mg PO HS SUMAtriptan SUCCINATE [Imitrex] 50 mg PO Q12H PRN PRN Reason: Migraine Headache traZODone HCL 150 mg PO HS Melatonin 3 mg PO HS Discontinued Omeprazole 40 mg PO DAILY #30 capsule.dr Discharge Medication List Diazepam [Valium] 10 mg PO TID 09/18/14 [History] Cariprazine HCl [Vraylar] 1.5 mg PO HS 08/14/17 [History] Escitalopram [Lexapro] 10 mg PO DAILY 08/14/17 [History] Furosemide [Lasix] 40 mg PO BID 08/14/17 [History] Potassium Chloride [Klor-Con 20] 20 meq PO BID 08/14/17 [History] lamoTRIgine [LaMICtal] 200 mg PO BID 08/14/17 [History] SUMAtriptan SUCCINATE [Imitrex] 50 mg PO Q12H PRN 09/09/17 [History] Melatonin 3 mg PO HS 12/02/17 [History] traZODone HCL 150 mg PO HS 12/02/17 [History] Acetaminophen Oral Susp (Peds) [Tylenol Oral Susp For Peds (Grape)] 500 mg PO Q6H #480 bottle 02/06/18 [Rx] Bisacodyl [Dulcolax] 5 mg PO DAILY PRN #10 tablet. 02/06/18 [Rx] Hyoscyamine Elixir [Levsin 0.125MG/ML Drops] 0.125 mg PO Q6HR PRN #10 ml [Rx] Ondansetron Odt [Zofran ODT] 4 mg PO Q8HR PRN #10 tab 02/06/18 [Rx] Simethicone 40 mg/0.6 ml Drops [Mylicon Drops] 40 mg PO Q6HR PRN #30 ml [Rx] Follow up Appointment(s)/Referral(s): Mela Doll MD [STAFF PHYSICIAN] - 02/09/18 (Please call to confirm time) Patient Instructions/Handouts: Laparoscopic Hiatal Hernia Repair (DC) Activity/Diet/Wound Care/Special Instructions: NO Lifting for 4 pounds in 4 weeks. May shower. No bath tub soaks. Liquid diet only. No straws. No carbonated beverages. Please open capsules or crushed tablets for medication greater than the size of tic tac Discharge Disposition: HOME SELF-CARE
--- NOTE | 2018-02-06 12:45 | FL ---
SINGLE CONTRAST UPPER GI EXAMINATION: CLINICAL HISTORY: 52-year-old female. Hiatal hernia repair, Tank fundoplication TECHNIQUE: Single contrast exam performed with 50 ml Isovue 370 contrast. Total fluoroscopy time: 34 seconds. Total images: 14 FINDINGS: The patient swallowed oral contrast without difficulty or delay. Esophageal peristalsis and motility are within normal limits. There are postsurgical changes of Tank fundoplication demonstrated. Ther e is good flow of contrast across the surgical level and into the stomach without evidence of contras t extravasation to suggest leak. No postsurgical free air seen. IMPRESSION: No evidence of leak or significant obstruction status post Tank fundoplication.
[2018-02-07] MEDS ORDERED: BISACODYL 5 MG TABLET.DR PO PRN (08:00)
== END 2018-02-06 13:55 | disposition home or self-care (01) | DRG 328 ==
LOC: 2ORMAIN 12:14 → 6PED 18:32
PROVIDERS: ADMIT Surgery Plastic and Reconstructive Surgery; ATTEND Surgery Plastic and Reconstructive Surgery
PROC: 0BUT4JZ Supplement Diaphragm with Synthetic Substitute, Percutaneous Endoscopic Approach (ICD-10-PCS; 2018-02-05)
PROC: 0DNW4ZZ Release Peritoneum, Percutaneous Endoscopic Approach (ICD-10-PCS; 2018-02-05)
PROC: 8E0W4CZ Robotic Assisted Procedure of Trunk Region, Percutaneous Endoscopic Approach (ICD-10-PCS; 2018-02-05)
PROC: 0DJ08ZZ Inspection of Upper Intestinal Tract, Via Natural or Artificial Opening Endoscopic (ICD-10-PCS; 2018-02-05)
PROC: 0DQ44ZZ Repair Esophagogastric Junction, Percutaneous Endoscopic Approach (ICD-10-PCS; principal; 2018-02-05 14:00)
DX: K44.0 Diaphragmatic hernia with obstruction, without gangrene (principal); K66.0 Peritoneal adhesions (postprocedural) (postinfection); F31.9 Bipolar disorder, unspecified; F41.9 Anxiety disorder, unspecified; G43.909 Migraine, unspecified, not intractable, without status migrainosus; I11.9 Hypertensive heart disease without heart failure; K21.0 Gastro-esophageal reflux disease with esophagitis; K29.50 Unspecified chronic gastritis without bleeding; I89.0 Lymphedema, not elsewhere classified; R13.10 Dysphagia, unspecified; Z79.899 Other long term (current) drug therapy; Z90.710 Acquired absence of both cervix and uterus; Z87.891 Personal history of nicotine dependence; Z88.8 Allergy status to other drugs, medicaments and biological substances; Z86.14 Personal history of Methicillin resistant Staphylococcus aureus infection; Z90.49 Acquired absence of other specified parts of digestive tract
CPT/HCPCS: 74240; 80051; 82310; 82565; 83735; 84100; 84132; 84520; 85025

== ENCOUNTER → 2018-04-20 | Outpatient (CLI) | payer OTHER | END | disposition home or self-care (01) | LOC: LABWHC1 14:35 | PROVIDERS: ATTEND Surgery Plastic and Reconstructive Surgery | DX: E83.42 Hypomagnesemia (principal); R19.7 Diarrhea, unspecified | CPT/HCPCS: 36415; 83735 ==

== ENCOUNTER → 2018-05-14 | Outpatient (CLI) | payer OTHER ==
--- NOTE | 2018-05-14 10:30 | FL ---
EXAMINATION TYPE: FL barium swallow DATE OF EXAM: 05/14/2018 CLINICAL HISTORY: Reflux after hiatal hernia surgery in January 2018. TECHNIQUE: A single contrast esophagram is performed utilizing thin and thick barium. A total of 2 minutes and 43 seconds of fluoroscopic time was utilized during procedure. 45 fluoroscopic images wer e saved. COMPARISON: None FINDINGS: The esophagus shows abnormal motility and markedly delayed emptying into the stomach. There is retained stasis of contrast both in the gravity dependent and gravity independent portions of the examination, larger within the gravity independent portion of the examination. This is seen within t he mid and distal esophagus without a secondary or tertiary peristaltic esophageal wave. No evidence of hiatal hernia or stricture noted. Mild gastroesophageal reflux was seen during real time performan ce of this study to the level of the distal esophagus, unprovoked without Valsalva maneuver. Delayed propulsion improved after large bolus of water was administered orally. IMPRESSION: 1. Abnormal esophageal motility with marked delay of contrast propulsion through the mid and distal e sophagus corrected with large bolus of water. No tertiary contractions are seen. Overall flaccid appe arance of the esophagus after initial normal primary and secondary contractile waves. Considerations are for presbyesophagus or neuromuscular disorder. 2. No distal esophageal stricture. 3. Mild gastroesophageal reflux.
== END ==
LOC: RADFLWHC 08:45
PROVIDERS: ATTEND Surgery Plastic and Reconstructive Surgery
DX: K21.9 Gastro-esophageal reflux disease without esophagitis (principal)
CPT/HCPCS: 74220

== ENCOUNTER 2018-06-23 09:37 | Day surgery (SDC) | payer OTHER ==
[2018-06-21 14:28] VITALS: BMI 25.0
[~2018-06-23 09:37] MED LIST changes: -DEXAMETHASONE SOD PHOSPHATE 10 MG/ML 1 ML VIAL IV ONE; -HEPARIN SODIUM,PORCINE 5,000 UNIT/ML 1 ML VIAL SQ ONE; +LACTATED RINGERS 1,000 ML IV SCH; +LIDOCAINE 1% 20 ML VIAL (10MG/ML) FOR IV START INTRADERMA PRN; -MIDAZOLAM 2 MG/2 ML VIAL IV PRN; -SCOPOLAMINE 1.5MG/72HR PATCH TRANSDERM ONE; -ceFAZolin IN SWFI 2 GM/20 ML SYRINGE IVP ONE; -fentaNYL (PF) 50 MCG/ML 2 ML AMP IV PRN
[2018-06-23 10:22] VITALS: TEMP 98
[2018-06-23] MEDS ORDERED: LACTATED RINGERS 1,000 ML IV ONE (10:22)
[2018-06-23] MEDS ORDERED: PROPOFOL 10 MG/ML 20 ML VIAL IV ONE (10:47)
[2018-06-23] MEDS ORDERED: LIDOCAINE 1% INJ 10MG/ML (20 ML MDV) ONE (10:47)
--- NOTE | 2018-06-23 11:30 | P.GSHP ---
History of Present Illness H&P Date: 06/23/18 CHIEF COMPLAINT: GERD and colon screen HISTORY OF PRESENT ILLNESS: The patient is a 52-year-old female who presents with gastroesophageal reflux disease and need for colon screen. Upper and lower endoscopy were offered for further evaluation and management. PAST MEDICAL HISTORY: Please see list. PAST SURGICAL HISTORY: Please see list. MEDICATIONS: Please see list. ALLERGIES: Please see list. SOCIAL HISTORY: No illicit drug use FAMILY HISTORY: No reports of Crohn disease or ulcerative colitis. REVIEW OF ORGAN SYSTEMS: CONSTITUTIONAL: No reports of fevers or chills. GI: Denies any blood in stools or constipation. PHYSICAL EXAM: VITAL SIGNS: Stable GENERAL: Well-developed pleasant in no acute distress. HEENT: No scleral icterus. Extraocular movements grossly intact. Moist buccal mucosa. NECK: Supple without lymphadenopathy. CHEST: Unlabored respirations. Equal bilateral excursions. CARDIOVASCULAR: Regular rate and rhythm. Distal 2+ pulses. ABDOMEN: Soft, nondistended. MUSCULOSKELETAL: No clubbing, cyanosis, or edema. ASSESSMENT: 1. Gastroesophageal reflux disease 2. Colon screen. PLAN: 1. Recommend proceeding with an upper and lower endoscopy Past Medical History Past Medical History: Coronary Artery Disease (CAD), GERD/Reflux, Neurologic Disorder Additional Past Medical History / Comment(s): LYMPH EDEMA- tera legs-uses machine to relieve fluid, recurrent hiatal hernia-x2 sx, migraines, diverticulosis, diarrhea and vomiting History of Any Multi-Drug Resistant Organisms: MRSA Date of last positivie culture/infection: 2007 MDRO Source:: MOUTH, SHOULDER, BACK-CYSTS Past Surgical History: Appendectomy, Breast Surgery, Cholecystectomy, Heart Catheterization, Hernia Repair, Hysterectomy, Orthopedic Surgery Additional Past Surgical History / Comment(s): BILAT carpal tunnel, ruben fundloplasty then 2nd sx d/t recurrant hiatal hernia. RT LUMPECTOMY-BENIGN. COLONOSCOPY. EGD. HEART CATH-12/04/17-NEG. Past Anesthesia/Blood Transfusion Reactions: Postoperative Nausea & Vomiting ( PONV) Smoking Status: Former smoker - Past Family History Mother Family Medical History: GERD/Reflux Additional Family Medical History / Comment(s): hiatal hernia Father Family Medical History: Diabetes Mellitus Additional Family Medical History / Comment(s): d/t complications of dm Brother(s) Family Medical History: Blood Disorder Additional Family Medical History / Comment(s): unknown kind of blood disorder Medications and Allergies Home Medications Medication Instructions Recorded Confirmed Type Cariprazine HCl [Vraylar] 1.5 mg PO HS 08/14/17 06/21/18 History Escitalopram [Lexapro] 10 mg PO DAILY 08/14/17 06/21/18 History lamoTRIgine [LaMICtal] 200 mg PO DAILY 08/14/17 06/21/18 History SUMAtriptan SUCCINATE [Imitrex] 50 mg PO Q12H PRN 09/09/17 06/21/18 History Melatonin 6 mg PO HS 12/02/17 06/21/18 History Omeprazole [PriLOSEC] 40 mg PO DAILY 05/05/18 06/21/18 History traZODone HCL [Desyrel] 200 mg PO HS 05/05/18 06/21/18 History Albuterol Inhaler [Ventolin Hfa 1 - 2 puff INHALATION Q6HR PRN #1 05/09/1806/21 Rx Inhaler] inhaler Loperamide [Imodium] 2 mg PO QID PRN #20 cap 05/09/18 06/21/18 Rx ALPRAZolam [Xanax] 1 mg PO QID 06/21/18 06/21/18 History Ipratropium [place] [Atrovent Hfa] 2 puff INHALATION QID PRN 06/21/18 06/21/18 History Psyllium Husk 100% [Metamucil 6 gm PO BID PRN 06/21/18 06/21/18 History Packet] Allergies Allergy/AdvReac Type Severity Reaction Status Date / Time quetiapine [From Seroquel] Allergy edema Verified 06/21/18 14:14 Surgical - Exam Vital Signs Temp Pulse Resp BP Pulse Ox 98.0 F 87 18 147/75 97 06/23/18 10:21 06/23/18 10:21 06/23/18 10:21 06/23/18 10:21 06/23/18 10:21
--- NOTE | 2018-06-23 11:32 | P.PCN ---
Date of Procedure: 06/23/18 Description of Procedure: PREOPERATIVE DIAGNOSIS: Gastroesophageal reflux disease. Epigastric abdominal pain POSTOPERATIVE DIAGNOSIS: Gastroesophageal reflux disease. Epigastric abdominal pain Erosive esophagitis Diaphragmatic hiatal hernia, recurrent OPERATION: Esophagogastroduodenoscopy with biopsies along antrum. SURGEON: Mela Doll MD ANESTHESIA: MAC. INDICATIONS: The patient is a 52-year-old female who presents with a history of reflux disease. Benefits and risks of the procedure were described. Informed consent was obtained. DESCRIPTION: The patient was brought into the endoscopy suite and laid in the left lateral decubitus position. An Olympus gastroscope was passed along the posterior oropharynx down to the distal esophagus where the squamocolumnar junction was encountered at 36 cm from the incisors. The stomach was entered and no bile reflux was found. Additional findings are listed below. Biopsies with cold forceps were obtained of the antrum. The first through third portion of the duodenum was examined and remarkable for hypertensive pylorus. Retroflexion of the scope confirmed Hill grade 3 lower esophageal valve. The squamocolumnar junction demonstrated LA grade C erosive esophagitis. The stomach was desufflated. The patient tolerated the procedure well. FINDINGS: Squamocolumnar junction 36 cm from the incisors. Diaphragmatic hiatus at 40 cm. Hiatal hernia, 4 cm Hill grade 3 lower esophageal valve. LA grade C erosive esophagitis. No active duodenitis. Chronic gastritis Bile reflux, moderate Hypertensive pyloric channel RECOMMENDATIONS: Upper endoscopy as needed.
--- NOTE | 2018-06-23 11:38 | P.PCN ---
Date of Procedure: 06/23/18 Description of Procedure: PREOPERATIVE DIAGNOSIS: Colitis with chronic diarrhea POSTOPERATIVE DIAGNOSIS: Colitis with chronic diarrhea Pandiverticulosis OPERATION: Colonoscopy to the ileocecal valve and appendiceal orifice. Colonoscopy with random cold forceps biopsies. SURGEON: Mela Doll MD. ANESTHESIA: MAC. INDICATIONS: The patient is a 52-year-old female who presents with chronic diarrhea over 2 months at least 6 bowel movements daily. Benefits and risks were described and informed consent was obtained. DESCRIPTION OF PROCEDURE: The patient had undergone Gatorade, MiraLAX and Dulcolax prep. She had been brought into the operating room and laid in the left lateral decubitus position. After adequate intravenous sedation, the rectum was examined with 2% lidocaine jelly. No external hemorrhoids were encountered. The rectal tone was within normal limits. No lesions were palpated in the rectal vault. An Olympus colonoscope was advanced until the ileocecal valve and appendiceal orifice were clearly viewed. The prep was excellent with visualization of the mucosal folds. The scope was removed with visualization of each mucosal fold. Scattered diverticulosis was encountered. Random biopsies were obtained with cold forceps or colon. A small tubular polyp was also cold forceps biopsies along the cecum. Retroflexion of the scope demonstrated grade 1 internal hemorrhoids without active bleeding or inflammation. The colon was desufflated. The patient had tolerated the procedure well. Withdrawal time was over 6 minutes. FINDINGS: Internal hemorrhoids, grade 1 No external hemorrhoids No arteriovenous malformations Sigmoid diverticulosis throughout the colon Random biopsies with cold forceps obtained for colitis Removal of 1 polyp: - Cold forceps biopsy at cecum, 3 mm polyp. RECOMMENDATIONS: Repeat colonoscopy in 10 years, 2028 Plan - Discharge Summary New Discharge Prescriptions: New Omeprazole 40 mg PO BID #90 capsule.dr Discontinued Omeprazole [PriLOSEC] 40 mg PO DAILY Psyllium Husk 100% [Metamucil Packet] 6 gm PO BID PRN PRN Reason: Constipation No Action lamoTRIgine [LaMICtal] 200 mg PO DAILY Escitalopram [Lexapro] 10 mg PO DAILY Cariprazine HCl [Vraylar] 1.5 mg PO HS SUMAtriptan SUCCINATE [Imitrex] 50 mg PO Q12H PRN PRN Reason: Migraine Headache Melatonin 6 mg PO HS traZODone HCL [Desyrel] 200 mg PO HS Albuterol Inhaler [Ventolin Hfa Inhaler] 1 - 2 puff INHALATION Q6HR PRN #1 inhaler PRN Reason: Wheezing Loperamide [Imodium] 2 mg PO QID PRN #20 cap PRN Reason: Diarrhea ALPRAZolam [Xanax] 1 mg PO QID Ipratropium [place] [Atrovent Hfa] 2 puff INHALATION QID PRN PRN Reason: Dyspnea Discharge Medication List Cariprazine HCl [Vraylar] 1.5 mg PO HS 08/14/17 [History] Escitalopram [Lexapro] 10 mg PO DAILY 08/14/17 [History] lamoTRIgine [LaMICtal] 200 mg PO DAILY 08/14/17 [History] SUMAtriptan SUCCINATE [Imitrex] 50 mg PO Q12H PRN 09/09/17 [History] Melatonin 6 mg PO HS 12/02/17 [History] traZODone HCL [Desyrel] 200 mg PO HS 05/05/18 [History] Albuterol Inhaler [Ventolin Hfa Inhaler] 1 - 2 puff INHALATION Q6HR PRN #1 inhaler 05/09/18 [Rx] Loperamide [Imodium] 2 mg PO QID PRN #20 cap 05/09/18 [Rx] ALPRAZolam [Xanax] 1 mg PO QID 06/21/18 [History] Ipratropium [place] [Atrovent Hfa] 2 puff INHALATION QID PRN 06/21/18 [History] Omeprazole 40 mg PO BID #90 capsule. 06/23/18 [Rx] Follow up Appointment(s)/Referral(s): Mela Doll MD [STAFF PHYSICIAN] - 07/20/18 Patient Instructions/Handouts: *[facility] - (Anesthesia) Endoscopy Discharge Instructions, Diverticulosis (DC), Diverticulitis Diet (GEN), Colonoscopy (DC), Upper Endoscopy (DC), Esophagitis (DC), Gastroesophageal Reflux Disease (DC) Activity/Diet/Wound Care/Special Instructions: Repeat colonoscopy in 10 years, 2028 Discharge Disposition: HOME SELF-CARE
[2018-06-23 11:48] VITALS: BP 120/85; PULSE 65; RESP 65
== END 2018-06-23 12:20 | disposition home or self-care (01) ==
LOC: ORWHC2ENDO 09:37
PROVIDERS: ATTEND Surgery Plastic and Reconstructive Surgery
DX: K57.30 Diverticulosis of large intestine without perforation or abscess without bleeding (principal); K64.0 First degree hemorrhoids; K63.5 Polyp of colon; K58.0 Irritable bowel syndrome with diarrhea; K22.10 Ulcer of esophagus without bleeding; K21.0 Gastro-esophageal reflux disease with esophagitis; K44.9 Diaphragmatic hernia without obstruction or gangrene; K29.50 Unspecified chronic gastritis without bleeding; K31.89 Other diseases of stomach and duodenum; I25.10 Atherosclerotic heart disease of native coronary artery without angina pectoris; I89.0 Lymphedema, not elsewhere classified; G43.909 Migraine, unspecified, not intractable, without status migrainosus; F32.9 Major depressive disorder, single episode, unspecified; Z79.899 Other long term (current) drug therapy; Z98.61 Coronary angioplasty status; Z90.49 Acquired absence of other specified parts of digestive tract; Z87.19 Personal history of other diseases of the digestive system; Z87.891 Personal history of nicotine dependence; Z86.14 Personal history of Methicillin resistant Staphylococcus aureus infection; Z88.8 Allergy status to other drugs, medicaments and biological substances
CPT/HCPCS: 88305; 45380; 43239; J2001; J2704

== ENCOUNTER 2020-10-03 07:28 | Day surgery (SDC) | payer OTHER ==
[2020-10-01 13:28] VITALS: BMI 25.0
[~2020-10-03 07:28] MED LIST changes: +LIDOCAINE 1% (10MG/ML) FOR IV START INTRADERMA PRN; -LIDOCAINE 1% 20 ML VIAL (10MG/ML) FOR IV START INTRADERMA PRN
[2020-10-03 07:45] VITALS: TEMP 98.5
[2020-10-03] MEDS ORDERED: PROPOFOL 10 MG/ML 20 ML VIAL IV ONE (08:52)
[2020-10-03] MEDS ORDERED: LIDOCAINE 1% INJ 10MG/ML (20 ML MDV) ONE (08:52)
--- NOTE | 2020-10-03 09:06 | P.PCN ---
Date of Procedure: 10/03/20 Procedure(s) Performed: BRIEF HISTORY: Patient is a 54-year-old, pleasant, white female scheduled for an upper endoscopy as a part of evaluation of severe heartburn associated with passive regurgitation, intermittent nausea vomiting for the last 2 months duration. She does have long-standing history of GERD of the 20 years duration and is status post Tank fundoplication in 2001. She did well for 5 years. She developed worsening symptoms in 2018 and underwent revision of Tank fundoplication by Dr. Doll. She did well for a few months but now has been having worsening symptoms. She is presently on omeprazole 40 mg twice daily despite which remains symptomatic. She was also diagnosed with gastroparesis in the past. Because of the worsening symptoms she is scheduled for an upper endoscopy to evaluate further.. PROCEDURE PERFORMED: Esophagogastroduodenoscopy with biopsy. PREOPERATIVE DIAGNOSIS: Long-standing history of GERD/gastroparesis/worsening symptoms lately and refractory to medical therapy. IV sedation per anesthesia. PROCEDURE: After informed consent was obtained, the patient was brought into the endoscopy unit. IV sedation was administered by Anesthesia under continuous monitoring. Initially the Olympus GIF-140 video endoscope was inserted into the mouth. Esophagus intubated without any difficulty. It was gradually advanced into the stomach and duodenum and carefully examined. The bulb and the second part of the duodenum appeared normal. The scope at this time was withdrawn to the stomach, adequately insufflated with air, and upon careful examination, mucosa of the antrum, appeared normal. There was large amount of food in the fundus and body the stomach consistent with gastroparesis. The mucosa of the body, cardia and the fundus could not be adequately visualized. Some of the mucosa had severe gastritis in the proximal body the stomach which was biopsied. The The scope was then withdrawn into the esophagus. The GE junction was located at 36 cm from the incisors. It was a 5 mm GE junction polyp that was biopsied. There were a few erosions in the distal esophagus consistent with LA grade B reflux esophagitis. The rest of esophagus appeared normal and the patient tolerated the procedure well. IMPRESSION: 1. Large amount of retained food in the stomach suggestive of gastroparesis with no gastric outlet obstruction. 2.. 5 Millimeter polyp at the GE junction status post biopsy 3. Erosions in the distal esophagus consistent with LA grade B reflux esophagitis. RECOMMENDATIONS: The findings of this examination were discussed with the patient as well as a family. She will continue with omeprazole 40 mg twice daily. Will start her on Reglan 10 mg 4 times daily. She'll be seen in office in one to 2 weeks..
[2020-10-03 09:13] VITALS: PULSE 83
[2020-10-03 09:39] VITALS: BP 124/76; RESP 16
== END 2020-10-03 09:45 | disposition home or self-care (01) ==
LOC: ORWHC2ENDO 07:28
PROVIDERS: ATTEND Internal Medicine Gastroenterology
DX: K31.7 Polyp of stomach and duodenum (principal); K21.9 Gastro-esophageal reflux disease without esophagitis; R13.10 Dysphagia, unspecified; Z79.899 Other long term (current) drug therapy; Z87.891 Personal history of nicotine dependence; Z88.8 Allergy status to other drugs, medicaments and biological substances
CPT/HCPCS: 88305; 43239; J2001; J2704

== ENCOUNTER 2022-06-24 09:52 | Day surgery (SDC) | payer OTHER ==
[2022-06-19 12:03] VITALS: BMI 26.6
[~2022-06-24 09:52] MED LIST changes: +ALPRAZolam 0.25 MG TAB PO PRN; +ALPRAZolam 0.5 MG TAB PO PRN; +ASPIRIN 325 MG TAB PO ONE; +ATORVASTATIN 80 MG TAB PO ONE; +HEPARIN SODIUM,PORCINE 10,000 UNIT in SODIUM CHLORIDE 0.9% 1,000 ML IRRIGATION PRN; +HEPARIN SODIUM,PORCINE 2,500 UNIT in SODIUM CHLORIDE 0.9% 250 ML IRRIGATION PRN; -LACTATED RINGERS 1,000 ML IV SCH; -LIDOCAINE 1% (10MG/ML) FOR IV START INTRADERMA PRN; +NITROGLYCERIN SL TABS 0.4 MG TAB SUBLINGUAL PRN; +SODIUM CHLORIDE 0.9% 1,000 ML in EMPTY BAG 1 BAG IV SCH
[2022-06-24] MEDS ORDERED: ONDANSETRON 4 MG/2 ML VIAL ONE (10:11)
[2022-06-24 10:18] VITALS: RESP 16; TEMP 97.9
[2022-06-24] MEDS ORDERED: VERAPAMIL 2.5 MG/ML 2 ML AMP ONE (11:01)
[2022-06-24] MEDS ORDERED: MIDAZOLAM 2 MG/2 ML VIAL IV ONE (11:29)
[2022-06-24] MEDS ORDERED: HEPARIN SODIUM 1,000 UN/ML (10ML VL) ONE (11:31)
[2022-06-24] MEDS ORDERED: LIDOCAINE 1% INJ 10MG/ML (5 ML VIAL-PF) SQ ONE (11:38)
[2022-06-24] MEDS: VERAPAMIL SYRINGE (5 MG/10 ML) INTRAARTER ONE ×2 (11:40→11:47)
[2022-06-24] MEDS ORDERED: HEPARIN SODIUM 1,000 UN/ML (10ML VL) IV ONE (11:41)
[2022-06-24] MEDS ORDERED: IOPAMIDOL-370 125ML BTL INJ ONE (11:47)
[2022-06-24] MEDS ORDERED: RX INFO: IV CONTRAST WAS GIVEN 1 EACH MISC MISCELLANE PRN (11:53)
--- NOTE | 2022-06-24 11:56 | P.PCN ---
Date of Procedure: 06/24/22 Operative Findings: CARDIAC CATHETERIZATION PERFORMING PHYSICIAN: Saul Awan MD, RPVI PROCEDURE PERFORMED: 1. Selective right and left coronary angiogram 2. Left heart catheterization INDICATION: Chest discomfort and this 56-year-old female patient with a smoker who underwent exercise treadmill stress test came in to be abnormal COMPLICATION: None APPROACH: Right radial artery LEVEL OF SEDATION: Moderate with a sedation length of 12 minutes PROCEDURE DESCRIPTION: After obtaining an informed consent, the patient was brought to cardiac slabber. Local anesthesia was performed using lidocaine subcutaneously. The right radial artery was cannulated using Seldinger technique, the guidewire passed easily, following that we advanced a 5-Spanish sheath dilator assembly, the wire and dilator were removed and sheath was flushed. Following that, 2 mg of verapamil along with 5000 unit heparin were given. Selective right and left coronary angiogram using a 6-Spanish JR4 and JL 3.5 catheters. Following that we did left heart catheterization using 6-Spanish pigtail catheter. The procedure was completed there was no complication. SELECTIVE CORONARY ANGIOGRAM: The right coronary artery: Large caliber vessel. Its a dominant vessel. Its angiographically normal. Distally bifurcates into PDA and PLV branches both appeared to be angiographically normal Left main: Is angiographically normal. Bifurcates into LCx and LAD The left circumflex: Large caliber vessel nondominant vessel. The LCx is angiographically normal The left anterior descending artery: Large caliber vessel. Its angiographically normal. Gives rises into the first and second diagonal branches both appeared to be angiographically normal HEMODYNAMICS: The LVEDD was 4 mmHg with no significant gradient across aortic valve CONCLUSION: 1. Normal coronary angiogram 2. Normal LVEDP POSTPROCEDURE MANAGEMENT: Medical treatment and follow-up with the patient
[2022-06-24] MEDS ORDERED: SODIUM CHLORIDE 0.9% 1,000 ML IV SCH (12:00)
[2022-06-24] MEDS ORDERED: fentaNYL (PF) 50 MCG/ML 2 ML AMP ONE (12:47)
[2022-06-24 14:48] VITALS: BP 139/76; PULSE 81
[2022-06-24] MEDS ORDERED: ACETAMINOPHEN TAB 500 MG TAB PO ONE (15:30)
== END 2022-06-24 16:11 | disposition home or self-care (01) ==
LOC: CATHCVL 09:52
PROVIDERS: ATTEND Internal Medicine Interventional Cardiology
DX: R00.0 Tachycardia, unspecified (principal); I10 Essential (primary) hypertension; E78.5 Hyperlipidemia, unspecified; I08.0 Rheumatic disorders of both mitral and aortic valves; F17.210 Nicotine dependence, cigarettes, uncomplicated; Z79.899 Other long term (current) drug therapy
CPT/HCPCS: 93458; C1769; C1894; J2250; J2405; J2001; J1644; Q9967